=== PATIENT | female | born 1950 | race Caucasian/White ===

== ENCOUNTER 2021-04-11 13:21 | Emergency (ER) | payer MEDICARE, BC ==
[2021-04-11] MEDS ORDERED: Sodium Chloride 0.9% 10 ML Syringe FLUSH PRN (13:23)
[2021-04-11] MEDS ORDERED: EPINEPHrine 1 MG/ML SDV IM ONE (13:23)
[2021-04-11] MEDS ORDERED: methylPREDNISolone Sodium Succinate 125 MG/2 ML SDV IVPUSH ONE (13:24)
[2021-04-11] MEDS ORDERED: Sodium Chloride 0.9% 1,000 ML IV ONE (13:24)
[2021-04-11] MEDS ORDERED: diphenhydrAMINE 50 MG/ML SDV IVPUSH ONE (13:25)
[2021-04-11] MEDS ORDERED: LORazepam 2 MG/ML SDV IVPUSH ONE (13:26)
--- NOTE | 2021-04-11 14:37 | EDM.PDOC ---
Scribed by Mary Parnell 04/11/21 1334 for Seven Donaldson MD ED HPI GENERAL MEDICAL PROBLEM - General Stated Complaint: [id number] BEE STING REACTION Time Seen by Provider: 04/11/21 13:23 Source of Information: Reports: Patient, RN, RN Notes Reviewed History Limitations: Reports: No Limitations - History of Present Illness INITIAL COMMENTS - FREE TEXT/NARRATIVE: Patient presents to ED by POV complaining that she was stung by a bee on the left hand just prior to arrival. After being stung she noticed redness and itching rapidly progressing up her arms onto her chest. Patient arrived extremely anxious, tearful with tremor, hyperventilation, and apparent panic attack. 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 She took Benadryl 50mg P.O. prior to arrival. Onset: Today Duration: Getting Worse Location: Reports: Generalized Severity: Severe Improves with: Reports: None Worsens with: Reports: None Associated Symptoms: Reports: No Other Symptoms - Related Data Allergies Allergy/AdvReac Type Severity Reaction Status Date / Time codeine Allergy Unknown Vomiting Verified 04/11/21 13:41 theophylline Allergy Unknown Vomiting Verified 04/11/21 13:41 Home Meds: Home Meds Albuterol Sulfate 10/21/13 [History] Albuterol [Proventil HFA] 2 puff INH Q4H PRN 10/21/13 [History] Codeine/guaiFENesin [guaiFENesin-Codeine Syrup] 5 ml PO Q4H 10/21/13 [History] Eletriptan [Relpax] 40 mg PO DAILY PRN 10/21/13 [History] Fexofenadine HCl [Carlene] 180 mg PO DAILY 10/21/13 [History] Fluticasone Propionate [Cutivate 0.05% Crm] TOP PRN 10/21/13 [History] Fluticasone/Salmeterol [Advair 100-50 Diskus] 1 puff INH BID 10/21/13 [History] Hydroxychloroquine [Plaquenil] 200 mg PO 10/21/13 [History] Levothyroxine [Synthroid] 50 mcg PO ACBRK 10/21/13 [History] Verapamil [Verapamil ER] 120 mg PO DAILY 10/21/13 [History] diphenhydrAMINE [Benadryl] 25 mg PO Q4HR 10/21/13 [History] ED ROS ALLERGIC REACTION - Review of Systems Review Of Systems: Comprehensive ROS is negative, except as noted in HPI. ED EXAM GENERAL NO PERIP PULSE - Physical Exam Exam: See Below Exam Limited By: No Limitations General Appearance: Alert, WD/WN, Anxious, Mild Distress (primarily due to anxiety) Eye Exam: Bilateral Eye: EOMI, Normal Inspection, PERRL Ears: Normal External Exam, Hearing Grossly Normal Nose: Normal Inspection, Normal Mucosa, No Blood Throat/Mouth: Normal Inspection, Normal Lips, Normal Teeth, Normal Gums, Normal Oropharynx, Normal Voice, No Airway Compromise, Other (No swelling of lips, tongue, or oropharynx) Head: Atraumatic, Normocephalic Neck: Normal Inspection, Supple, Non-Tender, Full Range of Motion Respiratory/Chest: No Respiratory Distress, Lungs Clear, Normal Breath Sounds, No Accessory Muscle Use, Chest Non-Tender Cardiovascular: Normal Peripheral Pulses, Regular Rate, Rhythm, No Edema, No Gallop, No JVD, No Murmur, No Rub, Tachycardia GI/Abdominal: Normal Bowel Sounds, Soft, Non-Tender Back Exam: Normal Inspection Extremities: Normal Range of Motion, Redness (from site of sting on left hand in a 2cm band of redness streaked proxmimally up the arm to the left chest) Neurological: Alert, Oriented, CN II-XII Intact, Normal Cognition, Normal Gait, No Motor/Sensory Deficits Psychiatric: Anxious (active panic attack upon arrival to ER) Skin Exam: Warm, Dry, Intact, Erythema (as noted above) Course - Vital Signs Last Recorded V/S: Last Vital Signs Temp 96.3 F L 04/11/21 13:26 Pulse 84 04/11/21 13:26 Resp 24 H 04/11/21 13:26 BP 119/98 H 04/11/21 13:26 Pulse Ox 100 04/11/21 13:26 - Orders/Labs/Meds Orders: Active Orders 24 hr Category Date Time Status Peripheral IV Care [RC] . DIRECTED Care 04/11/21 13:24 Active Sodium Chloride 0.9% [Saline Flush] Med 04/11/21 13:23 Active 10 ml FLUSH ASDIRECTED PRN Peripheral IV Insertion Adult [OM.PC] Stat Oth 04/11/21 13:24 Ordered Medication Orders Sodium Chloride (Sodium Chloride 0.9% 10 Ml Syringe) 10 ml FLUSH ASDIRECTED PRN PRN Reason: Keep Vein Open Last Admin: 04/11/21 13:41 Dose: 10 ml Documented by: MIKEY Meds: Medications Generic Name Dose Route Start Last Admin Trade Name Freq PRN Reason Stop Dose Admin Sodium Chloride 10 ml 04/11/21 13:23 04/11/21 13:41 Sodium Chloride 0.9% 10 Ml Syringe FLUSH 10 ml ASDIRECTED PRN Administration Keep Vein Open Discontinued Medications Generic Name Dose Route Start Last Admin Trade Name Freq PRN Reason Stop Dose Admin Diphenhydramine HCl 25 mg 04/11/21 13:25 04/11/21 13:35 Diphenhydramine 50 Mg/Ml Sdv IVPUSH 04/11/21 13:26 25 mg ONETIME ONE Administration Epinephrine HCl 0.5 mg 04/11/21 13:23 04/11/21 13:34 Epinephrine 1 Mg/Ml Sdv IM 04/11/21 13:24 0.5 mg ONETIME ONE Administration Sodium Chloride 1,000 mls @ 999 mls/hr 04/11/21 13:24 04/11/21 13:34 Normal Saline IV 04/11/21 14:24 999 mls/hr .BOLUS ONE Administration Lorazepam 1 mg 04/11/21 13:26 04/11/21 13:35 Lorazepam 2 Mg/Ml Sdv IVPUSH 04/11/21 13:27 1 mg ONETIME ONE Administration Methylprednisolone Sodium Succinate 125 mg 04/11/21 13:24 04/11/21 13:35 Methylprednisolone Sodium Succinate 125 Mg/2 Ml Sdv IVPUSH 04/11/21 13:25 125 mg ONETIME ONE Administration - Re-Assessments/Exams Free Text/Narrative Re-Assessment/Exam: 04/11/21 14:34 Pt much improved on reassessment. Departure - Departure Time of Disposition: 14:34 Disposition: Home, Self-Care 01 Condition: Good Clinical Impression: Allergic reaction to bee sting - Discharge Information *PRESCRIPTION DRUG MONITORING PROGRAM REVIEWED*: Not Applicable *COPY OF PRESCRIPTION DRUG MONITORING REPORT IN PATIENT CARLOS: Not Applicable Instructions: Bee, Wasp, or Hornet Sting, Adult Forms: ED Department Discharge Additional Instructions: Rx: Prednisone 20mg Rx: Zyrtec 10mg Rx: Epi-Pen Follow up in clinic if needed. Return to ER if any future allergic reactions. Sepsis Event Note (ED) - Focused Exam Vital Signs: Vital Signs Temp Pulse Resp BP Pulse Ox 04/11/21 13:26 96.3 F L 84 24 H 119/98 H 100 - My Orders Last 24 Hours: My Active Orders 04/11/21 13:23 Sodium Chloride 0.9% [Saline Flush] 10 ml FLUSH ASDIRECTED PRN 04/11/21 13:24 Peripheral IV Care [RC] . DIRECTED Peripheral IV Insertion Adult [OM.PC] Stat - Assessment/Plan Last 24 Hours: My Active Orders 04/11/21 13:23 Sodium Chloride 0.9% [Saline Flush] 10 ml FLUSH ASDIRECTED PRN 04/11/21 13:24 Peripheral IV Care [RC] . DIRECTED Peripheral IV Insertion Adult [OM.PC] Stat I have read and agree with the documentation that has been completed regarding this visit. By signing this record, I attest that the documentation was completed in my physical presence and is an accurate record of the encounter.
== END 2021-04-11 14:57 | disposition home or self-care (01) ==
LOC: DL.ED 13:21
DX: T63.441A Toxic effect of venom of bees, accidental (unintentional), initial encounter (principal); B37.3 Candidiasis of vulva and vagina; Z88.5 Allergy status to narcotic agent; Z88.8 Allergy status to other drugs, medicaments and biological substances; Z79.899 Other long term (current) drug therapy
CPT/HCPCS: 96372; 96374; 96375; 99282; J0171; J1200; J2060; J2930; J7030

== ENCOUNTER 2024-05-23 06:28 | Day surgery (SDC) | payer MEDICARE, BC ==
[2024-05-23] MEDS ORDERED: Midazolam 1 MG/ML 2 ML SDV IV ONE (06:29)
[2024-05-23] MEDS ORDERED: fentaNYL 100 MCG/2 ML SDV IV ONE (06:29)
[2024-05-23] MEDS ORDERED: Midazolam 1 MG/ML 2 ML SDV ONE (06:42)
[2024-05-23] MEDS ORDERED: fentaNYL 100 MCG/2 ML SDV ONE (06:42)
[2024-05-23] MEDS: Dextrose 5%-0.45% NaCl 1,000 ML IV SCH (06:56)
[2024-05-23] MEDS: fentaNYL 100 MCG/2 ML SDV IV ONE ×4 (07:53→08:09)
[2024-05-23] MEDS: Midazolam 1 MG/ML 2 ML SDV IV ONE ×6 (07:54→08:02)
== END 2024-05-23 09:39 | disposition home or self-care (01) ==
LOC: DL.ENDO 06:28
PROVIDERS: ATTEND Internal Medicine Gastroenterology
DX: Z12.11 Encounter for screening for malignant neoplasm of colon (principal); D12.0 Benign neoplasm of cecum; K57.30 Diverticulosis of large intestine without perforation or abscess without bleeding
CPT/HCPCS: 88305; J2250; J3010; J7799